=== PATIENT | male | born 2000 ===

== ENCOUNTER 2025-03-29 13:43 | Emergency (ER) | payer SELFPAY ==
--- NOTE | ~2025-03-29 | XR_ITS ---
EXAMINATION: XR ankle RT min 3V DATE: 03/29/2025 14:06 INDICATION: Lateral right ankle pain post injury TECHNIQUE: Anteroposterior, oblique, mortise, and lateral views of the right ankle were obtained. COMPARISON: None. FINDINGS: Alignment is normal. No fracture. Joint spaces are well maintained. No ankle joint effusion. Soft tissue about the lateral malleolus. IMPRESSION: 1. No osseous abnormality. Reviewed, dictated and finalized at location A. OR DRAFTER IMPRESSION: 1. No osseous abnormality.
[2025-03-29 13:50] VITALS: BP 123/69; PULSE 79; RESP 16; TEMP 36.6; O2SAT 98
== END 2025-03-29 17:22 | disposition left against medical advice (07) ==
LOC: ANHED 17:18
PROVIDERS: Emergency Provider Student in an Organized Health Care Education/Training Program
DX: S99.911A Unspecified injury of right ankle, initial encounter (principal); X50.9XXA Other and unspecified overexertion or strenuous movements or postures, initial encounter; Y93.67 Activity, basketball
CPT/HCPCS: 73610; 99199